=== PATIENT | male | born 1990 | race Caucasian/White ===

== ENCOUNTER 2017-06-13 19:13 | Emergency (ER) | payer SELFPAY ==
[~2017-06-13] VITALS: Ht 177.8 cm; Wt 73.8 kg
[~2017-06-13 19:13] MED LIST: MOTRIN600 MG PO; NOHOMEMEDS; SKELAXIN800 MG PO
[2017-06-13 21:04] LABS: BASOPHIL (%) 0.3 % (0-1); BASOPHIL COUNT 0.1 K/uL (0-0.1); EOSINOPHIL (%) 0 % (0-5); IMMATURE GRANULOCYTE (%) 0.9 % (0.0-0.7); LYMPHOCYTE (%) 3.1 % (15-42); LYMPHOCYTE COUNT 0.9 K/uL (1.0-2.8); MONOCYTE (%) 6.5 % (3-12); NEUTROPHIL (%) 89.2 % (45-76); NEUTROPHIL COUNT 27.2 K/uL (1.8-6.4); PLATELET COUNT 409 K/uL (156-360)
[2017-06-13 21:08] LABS: ALBUMIN 4.3 G/DL (3.2-4.8); CHLORIDE 100 MEQ/L (99-109); SODIUM 135 MEQ/L (136-147); TOTAL BILIRUBIN 0.3 MG/DL (0.0-1.0)
[2017-06-13 21:12] LABS: HEMATOCRIT 38.8 % (38.0-50.0); HEMOGLOBIN 13.9 G/DL (12.5-16.6); MCHC 35.8 G/DL (30.0-36.0); MCV 86.4 FL (86-99); RBC DIS.WIDTH-CV 12.6 % (11.8-14.6); RBC DIS.WIDTH-SD 39.4 % (39-53); RED BLOOD COUNT 4.49 M/uL (4.00-5.50); WHITE BLOOD COUNT 29.9 K/uL (4.1-10.2)
[2017-06-13 21:25] LABS: ACETAMINOPHEN (TYLENOL) < 10 MCG/ML (10-30); ALKALINE PHOSPHATASE 89 IU/L (3-129); ALT (GPT) 22 IU/L (3-49); AST (GOT) 34 IU/L (2-34); GFR ESTIMATE (CALCULATED) > 59 mL/min/ (58.99-99999); GLUCOSE 200 mg/dL (70-99); SALICYLATE < 3.0 MG/DL (15-30); SERUM ETHYL ALCOHOL < 10 mg/dL; TOTAL PROTEIN 7.4 G/DL (6.4-8.3); UREA NITROGEN (BUN) 13 mg/dL (9-23)
[2017-06-13 21:44] LABS: CREATINE KINASE 1894 IU/L (1-294)
[2017-06-14 00:03] LABS: AMPHETAMINE NEGATIVE (500 ng/mL); BARBITURATES NEGATIVE (200 ng/mL); BENZODIAZEPINES NEGATIVE (150 ng/mL); BUPRENORPHINE NEGATIVE (10 ng/mL); COCAINE NEGATIVE (150 ng/mL); METHADONE PRESUMPTIVE POSITIVE (200 ng/mL); METHAMPHETAMINE NEGATIVE (500 ng/mL); OPIATES (MORPHINE) NEGATIVE (100 ng/mL); OXYCODONE NEGATIVE (100 ng/mL); PHENCYCLIDINE NEGATIVE (25 ng/mL); PROPOXYPHENE NEGATIVE (300 ng/mL); THC CANNABINOIDS PRESUMPTIVE POSITIVE (50 ng/mL); TRICYCLIC ANTIDEPRESSANTS NEGATIVE (300 ng/mL)
[2017-06-14 02:30] VITALS: BP 134/79
== END 2017-06-14 02:55 | disposition home or self-care (01) ==
LOC: EME 19:13
PROVIDERS: Emergency Medicine
DX: F19.10 Other psychoactive substance abuse, uncomplicated (principal); F91.8 Other conduct disorders; F17.200 Nicotine dependence, unspecified, uncomplicated
CPT/HCPCS: 70450; 80053; 82550; 84999; 85025; 93005; 99281; 99285; G0480; J1630; J2250; J7030